=== PATIENT | male | born 1955 | race Caucasian/White ===

== ENCOUNTER 2019-06-14 04:40 | Emergency (ER) | payer OTHER ==
[2019-06-14] MEDS ORDERED: ONDANSETRON HCL INJ/PF 4 MG/2 ML SDV IV ONE (06:34)
[2019-06-14] MEDS ORDERED: HYDROMORPHONE HCL INJ/PF 2 MG/ML AMPULE IV ONE (06:34)
[2019-06-14] MEDS ORDERED: KETOROLAC TROMETHAMINE INJ/PF 30 MG/1 ML SDV IV ONE (06:34)
[2019-06-14] MEDS ORDERED: TAMSULOSIN HCL 0.4 MG CAP.SR.24H PO ONE (06:35)
[2019-06-14 06:50] LABS: HEMATOCRIT 44.7 % (37.9-51.0); HEMOGLOBIN 15.1 g/dL (13.5-17.0); MEAN CORPUSCULAR HEMOGLOBIN 27.1 pg (27.0-33.4); MEAN CORPUSCULAR HGB CONC 33.7 g/dL (32.0-36.0); MEAN CORPUSCULAR VOLUME 80 fl (80-97); PLATELET COUNT 231 10^3/uL (150-450); RED BLOOD COUNT 5.56 10^6/uL (4.35-5.55); RED CELL DISTRIBUTION WIDTH 12.9 % (11.5-14.0); WHITE BLOOD COUNT 14.9 10^3/uL (4.0-10.5)
[2019-06-14 06:53] LABS: APPEARANCE,URINE CLEAR; BILIRUBIN,URINE NEGATIVE (NEGATIVE); COLOR,URINE YELLOW; GLUCOSE, URINE >=500 mg/dL (NEGATIVE); KETONES,URINE NEGATIVE (NEGATIVE); LEUKOCYTE ESTERASE,URINE NEGATIVE (NEGATIVE); NITRITE,URINE NEGATIVE (NEGATIVE); PROTEIN,URINE NEGATIVE (NEGATIVE); URINE SPECIFIC GRAVITY 1.018; UROBILINOGEN,URINE NEGATIVE mg/dL (<2.0)
--- NOTE | 2019-06-14 06:58 | ER Document Report ---
Entered by ABHILASH BARROW SCRIBE 06/14/19 0638 Acting as scribe for:SARITA RODRIGUEZ IV, MD ED GI/ - General Chief Complaint: Possible Kidney Stone Stated Complaint: POSSIBLE KIDNEY STONE Time Seen by Provider: 06/14/19 06:08 Primary Care Provider: MARY JANE JOHNSON MD [Primary Care Provider] - Follow up as needed Mode of Arrival: Ambulatory Information source: Patient Notes: Patient is a 63-year-old male that presents to the emergency department today with complaints of a sudden onset of right-sided flank pain that radiates to his right groin and into his right testicle at 1:30 AM this morning. Patient has a history of kidney stones, stating he has passed 5 stones in the past without intervention. Patient states his symptoms today feel identical to his previous kidney stones. Patient has vomited twice secondary to pain. Patient denies being on Flomax. Patient states when he initially arrived his pain was a 9/10 but he states he is more comfortable now. TRAVEL OUTSIDE OF THE [place] IN LAST 30 DAYS: No - Related Data Allergies/Adverse Reactions: No Known Allergies Allergy (Unverified 03/14/13 07:52) Home Medications: invokana 100 mg. low dose asa 81 mg. losartan-HCTZ 100-25. atorvastatin 20 mg. loradine 10 mg Past Medical History - General Information source: Patient - Social History Smoking Status: Never Smoker Cigarette use (# per day): No Frequency of alcohol use: None Drug Abuse: None Lives with: Family Family History: Reviewed & Not Pertinent Patient has suicidal ideation: No Patient has homicidal ideation: No - Past Medical History Cardiac Medical History: Reports: Hx Hypercholesterolemia, Hx Hypertension Endocrine Medical History: Reports: Hx Diabetes Mellitus Type 2 Renal/ Medical History: Reports: Hx Kidney Stones - all passable Surgical Hx: Negative Review of Systems - Review of Systems Constitutional: No symptoms reported EENT: No symptoms reported Cardiovascular: No symptoms reported Respiratory: No symptoms reported Gastrointestinal: See HPI, Abdominal pain Genitourinary: See HPI, Flank pain Male Genitourinary: See HPI, Testicular pain Musculoskeletal: No symptoms reported Skin: No symptoms reported Hematologic/Lymphatic: No symptoms reported Neurological/Psychological: No symptoms reported -: Yes All other systems reviewed and negative Physical Exam - Vital signs Vitals: Temp Pulse Resp BP Pulse Ox 97.5 F 72 20 195/96 H 100 06/14/19 04:54 06/14/19 04:54 06/14/19 04:54 06/14/19 04:54 06/14/19 04:54 - Notes Notes: Physical Exam: General: Alert, appears uncomfortable. HEENT: Normocephalic. Atraumatic. PERRL. Extraocular movements intact. Oropharynx clear. Neck: Supple. Non-tender. Respiratory: No respiratory distress. Clear and equal breath sounds bilaterally. Cardiovascular: Regular rate and rhythm. Abdominal: Normal Inspection. Non-tender. No distension. Normal Bowel Sounds. Back: No CVA tenderness to light percussion. No gross abnormalities. Extremities: Moves all four extremities. Upper extremities: Normal inspection. Normal ROM. Lower extremities: Normal inspection. No edema. Normal ROM. Neurological: Normal cognition. AAOx4. Normal speech. Psychological: Normal affect. Normal Mood. Skin: Warm. Dry. Normal color. Course - Re-evaluation Re-evalutation: 06/14/19 08:01 Patient is currently pain-free. Findings of MSE discussed with patient and patient's . All questions were answered. Patient and patient's are appreciative of care. Patient was instructed to follow-up with his PCP as needed. Patient also instructed to return to the ER at any time if his symptoms return. - Vital Signs Vital signs: Temp Pulse Resp BP Pulse Ox 97.5 F 72 20 195/96 H 100 06/14/19 04:54 06/14/19 04:54 06/14/19 04:54 06/14/19 04:54 06/14/19 04:54 06/14/19 08:01 Vital signs reviewed by this MD. - Laboratory Result Diagrams: 06/14/19 06:30 06/14/19 06:30 Laboratory results interpreted by me: 06/14/19 06/14/19 06/14/19 06:30 06:30 06:30 WBC 14.9 H RBC 5.56 H Seg Neuts % (Manual) 84 H Band Neutrophils % 1 L Lymphocytes % (Manual) 3 L Abs Neuts (Manual) 12.7 H Abs Lymphs (Manual) 0.4 L BUN 30 H Creatinine 2.32 H Est GFR ( Amer) 34 L Est GFR (MDRD) Non-Af 28 L Glucose 319 H Alkaline Phosphatase 163 H Urine Glucose (UA) >=500 H Urine Blood LARGE H Laboratory results reviewed by this MD. - Diagnostic Test Radiology reviewed: Reports reviewed Discharge - Discharge Clinical Impression: Flank pain, Glucosuria, Bilateral nephrolithiasis Hematuria Qualifiers: Hematuria type: other microscopic Qualified Code(s): R31.29 - Other microscopic hematuria; R31.2 - Other microscopic hematuria Condition: Good Disposition: HOME, SELF-CARE Instructions: Flank Pain ([facility]), Kidney Stone ([facility]) Additional Instructions: Return to the ER at any time if your symptoms recur. Follow-up with your primary care provider in 3 days.Kidney Stone You are passing or have passed a kidney stone. These stones are usually due to increased calcium or uric acid concentrations in your urine. Stones w ithin the kidney itself are not painful. The pain occurs as the stone leaves the kidney to pass down the long tube, called the ureter, leading to the bladder. If the stone is small, it will usually pass by itself. Most patients can pass the stone at home. You will usually receive medications for pain, nausea or vomiting, and sometimes a medication to assist in passing the kidney stone. However, if the pain is very severe or if vomiting prevents you from taking oral pain medications, you may need to return for further treatment. Drink three or four quarts of fluids per day. You will be given pain medication (if needed) and urine strainers. Strain all your urine to see if the stone passes. If your doctor has asked you to bring the stone in for analysis, return with the stone once it has passed. Return if pain or vomiting become severe, if you develop a high fever, if you are unable to pass your urine, or if other unusual symptoms occur. HOME CARE INSTRUCTIONS & INFORMATION: Thank you for choosing us for your medical needs. We hope you're satisfied with the care you received. After you leave, you must properly care for your problem and, at the same time, observe its progress. Any condition can change. Some illnesses can change rapidly over hours or days. If your condition worsens, return to the Emergency Department or see your physician promptly. ABOUT YOUR X-RAYS AND EKG'S: If you had an EKG or X-rays taken, they have been read by the Emergency Physician. The X-rays and EKG's will also be read by a Radiologist or Super[employer] within 24 hours. If discrepancies are noted, you will be notified by telephone. Please be certain the ED has a correct telephone number & address where you can be reached. Also, realize that some fractures or abnormalities do not show up on initial X-rays. If your symptoms continue, see your physician. ABOUT YOUR LABORATORY TEST: If you had laboratory tests, the results have been reviewed by the Emergency Physician. Some test results (for example cultures) may not be available for several days. You will be contacted if any test result shows you need additional treatment. Please be certain the ED has a correct telephone number and address where you can be reached. ABOUT YOUR MEDICATIONS: You will receive instructions on how to take your medicine on the prescription label you receive. Additional information may be provided by the Pharmacy. If you have questions afterwards, call the ED for clarification or further instructions. Some prescribed medications may cause drowsiness. Do not perform tasks such as driving a car or operating machinery without consulting your Pharmacist. If you feel you need a refill of pain medication, your condition will need re-evaluation. Please do not call for a refill of any medication. ABOUT YOUR SIGNATURE: Signature of this document acknowledges to followin. Understanding that you received emergency treatment and that you may be released before al medical problems are known or treated. Please be certain the ED has a correct phone number & address where you can be reached. 2. Acknowledgement that you will arrange for follow-up care as recommended. 3. Authorization for the Emergency Physician to provide information to your follow-up Physician in order to maximize your care. AT ANY TIME, IF YOUR SYMPTOMS CHANGE SIGNIFICANTLY OR WORSEN OR YOU DEVELOP NEW SYMPTOMS, RETURN TO THE EMERGENCY DEPARTMENT IMMEDIATELY FOR RE-EVALUATION. OUR GOAL IS TO PROVIDE EXCELLENT MEDICAL CARE! WE HOPE THAT WE HAVE MET YOUR EXPECTATIONS DURING YOUR EMERGENCY DEPARTMENT VISIT AND THAT YOU FEEL YOU HAVE RECEIVED EXCELLENT CARE! Referrals: MARY JANE JOHNSON MD [Primary Care Provider] - Follow up in 3-5 days I personally performed the services described in the documentation, reviewed and edited the documentation which was dictated to the scribe in my presence, and it accurately records my words and actions.
[2019-06-14 07:11] LABS: ALBUMIN 4.2 g/dL (3.5-5.0); ALKALINE PHOSPHATASE 163 U/L (38-126); ANION GAP 13 (5-19); ASPARTATE AMINO TRANSFERASE 26 U/L (17-59); BILIRUBIN,DIRECT 0.2 mg/dL (0.0-0.4); BILIRUBIN,TOTAL 0.6 mg/dL (0.2-1.3); BLOOD UREA NITROGEN 30 mg/dL (7-20); CALCIUM 9.5 mg/dL (8.4-10.2); CARBON DIOXIDE 24 mmol/L (22-30); CHLORIDE 102 mmol/L (98-107); GLUCOSE 319 mg/dL (75-110); POTASSIUM 4.6 mmol/L (3.6-5.0); TOTAL PROTEIN 6.8 g/dL (6.3-8.2)
[2019-06-14 07:22] LABS: ABSOLUTE LYMPHOCYTES# (MANUAL) 0.4 10^3/uL (0.5-4.7); ABSOLUTE MONOCYTES # (MANUAL) 1.2 10^3/uL (0.1-1.4); BAND NEUTROPHILS % (MANUAL) 1 % (3-5); BASOPHILS % (MANUAL) 0 % (0-2); EOSINOPHILS % (MANUAL) 4 % (0-6); LYMPHOCYTES % (MANUAL) 3 % (13-45); MONOCYTES % (MANUAL) 8 % (3-13); RBC MORPHOLOGY COMMENT NORMO-CYTIC/CHROMIC; SEGMENTED NEUTROPHILS % (MAN) 84 % (42-78); TOTAL CELLS COUNTED 100
[2019-06-14 07:23] LABS: PLATELET COMMENT ADEQUATE
--- NOTE | 2019-06-14 07:28 | RADIOLOGY REPORT (SQ) ---
CT abdomen and pelvis without contrast on 06/14/2019 at 7:03 AM CLINICAL INDICATION: Right-sided back pain radiating to right groin TECHNIQUE: Multiple axial images are obtained throughout the abdomen and pelvis without the administration of contrast. This exam was performed according to our departmental dose-optimization program, which includes automated exposure control, adjustment of the mA and/or kV according to patient size and/or use of iterative reconstruction technique. Total DLP is 1033.27 mGy*cm. COMPARISON: None FINDINGS: Abdomen: The lung bases are clear. There are multiple nonobstructing bilateral renal stones. The largest stone in the lower pole of the right kidney measures 1 cm. There is a large cyst off the upper pole of the left kidney. There are no ureteral stones and no hydronephrosis. There is nonspecific bilateral perinephric stranding, recommend correlation with urinalysis to exclude infection. The unenhanced solid abdominal organs are otherwise unremarkable. Vascular calcifications are noted. There is no abdominal adenopathy. There is no free fluid or free air within the abdomen. The abdominal portion of the GI tract is unremarkable. Pelvis: There is a very small right inguinal hernia containing only fat. There is no free fluid in the pelvis. There is no pelvic adenopathy. The pelvic portion of the GI tract including the appendix is unremarkable. Degenerative changes are noted in the spine. IMPRESSION: 1. Bilateral nephrolithiasis with no ureteral stones and no hydronephrosis. 2. Bilateral perinephric stranding is nonspecific but consider correlation with urinalysis to exclude infection as a cause.
[2019-06-14] MEDS ORDERED: NORMAL SALINE 500 ML IV ONE (07:41)
[2019-06-14 08:22] VITALS: BP 125/81
== END 2019-06-14 08:22 | disposition home or self-care (01) ==
LOC: ER 04:40
DX: N20.0 Calculus of kidney (principal); R31.29 Other microscopic hematuria; R81 Glycosuria; R10.9 Unspecified abdominal pain; R11.10 Vomiting, unspecified; I10 Essential (primary) hypertension; N50.811 Right testicular pain; E78.00 Pure hypercholesterolemia, unspecified; E11.9 Type 2 diabetes mellitus without complications; Z79.84 Long term (current) use of oral hypoglycemic drugs; Z79.899 Other long term (current) drug therapy
CPT/HCPCS: 36415; 85025; 80053; 81001; 74176; J1885; J1170; J2405; J7040; 96374; 96375; 99284

== ENCOUNTER 2019-06-21 17:14 | Emergency (ER) | payer OTHER ==
--- NOTE | 2019-06-21 17:31 | ER Document Report ---
ED Cardiac - General Chief Complaint: Chest Pain Stated Complaint: CHEST PAIN Time Seen by Provider: 06/21/19 17:24 Primary Care Provider: MARY JANE JOHNSON MD [Primary Care Provider] - Follow up as needed TRAVEL OUTSIDE OF THE [place] IN LAST 30 DAYS: No - HPI Notes: 63-year-old male to the emergency department with complaints of exertional chest pain that began 1 week ago and is gotten worse. He admits to associated nausea and some left arm tingling. He states that every time he tries to exert himself by climbing into his truck or moving something he gets very short of breath and has this chest pressure. He presented today to [facility] and was complaining of the chest pressure. They were able to obtain a troponin and it showed that it was 0.1. They also gave him 3 sublingual nitroglycerin with improvement of his chest pressure. He is never had a heart attack before. He is a patient who has hypertension, diabetes, hyperlipidemia. He also has lois maryumang. He states that his diabetes medicine has recently been changed so his blood sugar has not been as well controlled. He does take a daily aspirin but no other blood thinners. He denies any family history of heart attack. He does not smoke. He has never had a stress test or a heart cath in the past. - Related Data Allergies/Adverse Reactions: No Known Allergies Allergy (Unverified 03/14/13 07:52) Past Medical History - General Information source: Patient, Relative - Social History Smoking Status: Never Smoker Frequency of alcohol use: None Drug Abuse: None Lives with: Family Family History: Hypertension - Past Medical History Cardiac Medical History: Reports: Hx Hypercholesterolemia, Hx Hypertension Endocrine Medical History: Reports: Hx Diabetes Mellitus Type 2 Renal/ Medical History: Reports: Hx Kidney Stones - all passable Review of Systems - Review of Systems Constitutional: denies: Chills, Fever EENT: No symptoms reported Cardiovascular: Chest pain. denies: Syncope, Dizziness, Lightheaded Respiratory: Short of breath. denies: Cough Gastrointestinal: Nausea. denies: Abdominal pain, Diarrhea, Vomiting Musculoskeletal: No symptoms reported Skin: No symptoms reported Hematologic/Lymphatic: No symptoms reported Neurological/Psychological: See HPI, Numbness -: Yes All other systems reviewed and negative Physical Exam - Vital signs Vitals: Pulse Ox 100 06/21/19 17:18 Interpretation: Normal - General General appearance: Appears well, Alert In distress: Mild Notes: Mild chest discomfort; patient rates it as a 3 out of 5 since getting sublingual nitroglycerin - HEENT Head: Normocephalic, Atraumatic Eyes: Normal Pupils: PERRL - Respiratory Respiratory status: No respiratory distress Chest status: Nontender Breath sounds: Normal Chest palpation: Normal - Cardiovascular Rhythm: Regular Heart sounds: Normal auscultation Murmur: No Notes: No pitting edema - Abdominal Inspection: Normal Distension: No distension Bowel sounds: Normal Tenderness: Nontender Organomegaly: No organomegaly - Neurological Neuro grossly intact: Yes Cognition: Normal Orientation: AAOx4 Valeriy Coma Scale Eye Opening: Spontaneous Valeriy Coma Scale Verbal: Oriented Valeriy Coma Scale Motor: Obeys Commands Valeriy Coma Scale Total: 15 Speech: Normal Cranial nerves: Normal Cerebellar coordination: Normal. 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 No: Pronator drift Sensory: Normal - Psychological Associated symptoms: Normal affect, Normal mood - Skin Skin Temperature: Warm Skin Moisture: Dry Skin Color: Normal Course - Re-evaluation Re-evalutation: 06/21/[address] Wright, ER attending. He is aware patient's troponin being elevated as well as T wave inversions in inferior leads. He agrees with plan to transfer patient for possible need for cardiology intervention. We will start patient on heparin bolus and infusion. Spoke with Dr. Reynaldo Alejandro at [facility]. He agrees with the plan for transfer for patient. He is aware of heparin as well as nitroglycerin as well as aspirin and morphine given for patient. He is aware that patient still has persisting pain that he rates as a 1 out of 5. He accepts patient. Impression: NSTEMI and chest pain. Patient will be transferred to [facility] for further management and care. He has been started on heparin bolus and infusion. He continues to have a little bit of chest pressure and rates his pain at about a 2 out of 5. Repeat EKG does not show any changing on his EKG. He still has T wave inversion and flattening in the inferior leads but no STEMI. I had extensive conversation with family and patient about plan and they agree. They are aware that patient has a bed at [facility] and will be transferred s hortly. - Vital Signs Vital signs: Temp Pulse Resp BP Pulse Ox 98.1 F 76 20 110/72 97 06/21/19 20:55 06/21/19 20:55 06/21/19 20:55 06/21/19 20:55 06/21/19 20:55 - Laboratory Result Diagrams: 06/21/19 17:15 06/21/19 17:15 Laboratory results interpreted by me: 06/21/19 17:15 BUN 24 H Creatinine 1.65 H Est GFR ( Amer) 51 L Est GFR (MDRD) Non-Af 42 L Glucose 247 H Alkaline Phosphatase 135 H - Diagnostic Test Radiology reviewed: Image reviewed, Reports reviewed - EKG Interpretation by Me Additional EKG results interpreted by me: 06/21/19 EKG #1: No STEMI, rate of 68. T wave flattening and slight inversion in inferior leads EKG #2: rate of 73, NO STEMI. Persistent t wave flattening and slight inversion in inferior leads not significantly different from initial. Critical Care Note - Critical Care Note Total time excluding time spent on procedures (mins): 61 Comments: Spent over 60 minutes in critical care time on this patient between consultation conversations as well as bedside. Discharge - Discharge Clinical Impression: NSTEMI (non-ST elevated myocardial infarction), Chest pain Condition: Stable Disposition: [facility] Referrals: MARY JANE JOHNSON MD [Primary Care Provider] - Follow up as needed
[2019-06-21] MEDS ORDERED: NITROGLYCERIN 2% OINTMENT 1 GM PACKET TP ONE (17:41)
[2019-06-21 17:44] LABS: ABSOLUTE BASOPHILS # (AUTO) 0.1 10^3/uL (0.0-0.2); ABSOLUTE EOSINOPHILS # (AUTO) 0.5 10^3/uL (0.0-0.6); ABSOLUTE LYMPHOCYTES (AUTO) 1.3 10^3/uL (0.5-4.7); ABSOLUTE MONOCYTES (AUTO) 0.8 10^3/uL (0.1-1.4); ABSOLUTE NEUT (AUTO) 7.2 10^3/uL (1.7-8.2); BASOPHILS % (AUTO) 1.2 % (0-2); EOSINOPHILS % (AUTO) 4.7 % (0-6); HEMATOCRIT 44.2 % (37.9-51.0); HEMOGLOBIN 15.1 g/dL (13.5-17.0); LYMPHOCYTES % (AUTO) 13.5 % (13-45); MEAN CORPUSCULAR HEMOGLOBIN 27.2 pg (27.0-33.4); MEAN CORPUSCULAR HGB CONC 34.1 g/dL (32.0-36.0); MEAN CORPUSCULAR VOLUME 80 fl (80-97); MONOCYTES % (AUTO) 7.8 % (3-13); PLATELET COUNT 254 10^3/uL (150-450); RED BLOOD COUNT 5.53 10^6/uL (4.35-5.55); SEGMENTED NEUTROPHILS % (AUTO) 72.8 % (42-78); TOTAL CELLS COUNTED % (AUTO) 100 %; WHITE BLOOD COUNT 9.9 10^3/uL (4.0-10.5)
--- NOTE | 2019-06-21 17:52 | RADIOLOGY REPORT (SQ) ---
EXAM DESCRIPTION: CHEST SINGLE VIEW COMPLETED DATE/TIME: 06/21/2019 5:44 pm REASON FOR STUDY: chest pain COMPARISON: 12/29/2009 EXAM PARAMETERS: NUMBER OF VIEWS: One view. TECHNIQUE: Single frontal radiographic view of the chest acquired. RADIATION DOSE: NA LIMITATIONS: None. FINDINGS: LUNGS AND PLEURA: No opacities, masses or pneumothorax. No pleural effusion. MEDIASTINUM AND HILAR STRUCTURES: No masses. Contour normal. HEART AND VASCULAR STRUCTURES: Heart normal in size. Normal vasculature. BONES: No acute findings. HARDWARE: None in the chest. OTHER: No other significant finding. IMPRESSION: NO ACUTE RADIOGRAPHIC FINDING IN THE CHEST. TECHNICAL DOCUMENTATION: JOB ID: [id number] [employer]- All Rights Reserved Reading location - IP/workstation name: [email or web address]
[2019-06-21 18:05] LABS: ALBUMIN 4.4 g/dL (3.5-5.0); ALKALINE PHOSPHATASE 135 U/L (38-126); ANION GAP 13 (5-19); ASPARTATE AMINO TRANSFERASE 30 U/L (17-59); BILIRUBIN,DIRECT 0.3 mg/dL (0.0-0.4); BILIRUBIN,TOTAL 0.8 mg/dL (0.2-1.3); BLOOD UREA NITROGEN 24 mg/dL (7-20); CALCIUM 9.7 mg/dL (8.4-10.2); CARBON DIOXIDE 24 mmol/L (22-30); CHLORIDE 101 mmol/L (98-107); CREATINE KINASE 71 U/L (55-170); GLUCOSE 247 mg/dL (75-110); POTASSIUM 4.3 mmol/L (3.6-5.0); TOTAL PROTEIN 7.3 g/dL (6.3-8.2)
[2019-06-21 18:15] LABS: CREATINE KINASE MB 2.1 ng/mL (<4.55)
--- NOTE | 2019-06-21 18:30 | EKG REPORT ---
SEVERITY:- ABNORMAL ECG - SINUS RHYTHM NONSPECIFIC T ABNORMALITIES, INFERIOR LEADS : Confirmed by: Elpidio Olsen MD 21-Jun-2019 18:29:41
[2019-06-21 18:34] LABS: TROPONIN I 0.366 ng/mL
[2019-06-21] MEDS ORDERED: HEPARIN SODIUM,PORCINE/D5W 25,000 UNIT/250 ML RTUINJ IV PRN (19:10)
[2019-06-21] MEDS ORDERED: HEPARIN SOD (PORCINE) 1,000 UNIT/ML 10 ML VIAL IV ONE (19:10)
[2019-06-21] MEDS ORDERED: ONDANSETRON HCL INJ/PF 4 MG/2 ML SDV IV ONE ×2 (19:10→21:05)
[2019-06-21] MEDS ORDERED: MORPHINE SULFATE 10 MG/ML INJ IV ONE ×2 (19:10→21:05)
[2019-06-21 19:36] LABS: PARTIAL THROMBOPLASTIN TIME 26.8 SEC (23.5-35.8)
[2019-06-21 20:03] LABS: INTERNATIONAL RATION (INR) 1.07
[2019-06-21 21:42] VITALS: BP 108/77
--- NOTE | 2019-06-22 17:29 | EKG REPORT ---
SEVERITY:- ABNORMAL ECG - SINUS RHYTHM NONSPECIFIC T ABNORMALITIES, INFERIOR LEADS : Confirmed by: Elpidio Olsen MD 22-Jun-2019 17:29:08
== END 2019-06-21 21:55 | disposition short-term general hospital (02) ==
LOC: ER 17:14
DX: I21.4 Non-ST elevation (NSTEMI) myocardial infarction (principal); R07.89 Other chest pain; R11.0 Nausea; R20.2 Paresthesia of skin; R06.02 Shortness of breath; R20.0 Anesthesia of skin; I10 Essential (primary) hypertension; E11.9 Type 2 diabetes mellitus without complications; E78.5 Hyperlipidemia, unspecified; E66.9 Obesity, unspecified; Z79.82 Long term (current) use of aspirin; Z79.899 Other long term (current) drug therapy
CPT/HCPCS: 93005; 36415; 82553; 82550; 85025; 85610; 85730; 80053; 84484; 71045; 93010; J1644 ×2; J2270; J2405; 96365; 96375; 96376; 99291